=== PATIENT | male | born 1965 | race Two or more races ===

== ENCOUNTER 2019-02-03 13:53 | Emergency (ER) | payer OTHER ==
[~2019-02-03] VITALS: Ht 162.6 cm; Wt 61.2 kg
[2019-02-03 13:57] VITALS: Ht 162.6 cm; Wt 61.2 kg
[2019-02-03 14:50] VITALS: BP 96/66
== END 2019-02-03 14:50 | disposition home or self-care (01) ==
LOC: ED 13:53
DX: S90.112A Contusion of left great toe without damage to nail, initial encounter (principal); X58.XXXA Exposure to other specified factors, initial encounter; Y93.89 Activity, other specified; Y92.89 Other specified places as the place of occurrence of the external cause; Y99.8 Other external cause status

== ENCOUNTER 2020-09-05 17:25 | Emergency (ER) | payer OTHER ==
[~2020-09-05] VITALS: Ht 160 cm; Wt 67.1 kg
[2020-09-05 17:33] VITALS: Ht 160 cm; Wt 67.1 kg
[2020-09-05 18:42] LABS: BASOPHIL % 0.6 % (0.2-1.5); PLATELET COUNT 304 x10^3mcL (152-348)
[2020-09-05 18:46] LABS: RED CELL DISTRIBUTION WIDTH 14.6 % (12.1-16.2)
[2020-09-05 19:05] LABS: CALCIUM 8.9 mg/dL (8.5-10.1); CARBON DIOXIDE 30.4 mmol/L (21-32); CHLORIDE SERUM 105 mmol/L (98-107); CREATININE SERUM 0.8 mg/dL (0.7-1.3); GFR1 > 60 mL/min; GLUCOSE SERUM 87 mg/dL (74-106); POTASSIUM SERUM 4.1 mmol/L (3.5-5.1); SODIUM SERUM 139 mmol/L (136-145)
[2020-09-05 19:09] LABS: ALBUMIN 3.5 g/dL (3.4-5.0); ALKALINE PHOSPHATASE 74 U/L (46-116); ALT/SGPT 120 U/L (16-63); AST/SGOT 75 U/L (15-37); BILIRUBIN TOTAL 0.7 mg/dL (0.20-1.00); C REACTIVE PROTEIN 1.8 mg/dL (<=0.9); TOTAL PROTEIN, SERUM 7.9 g/dL (6.4-8.2)
[2020-09-05] MEDS ORDERED: KEF500 PO (21:11)
[2020-09-05] MEDS ORDERED: NAPROSYN500 MG PO (21:11)
[2020-09-05] MEDS ORDERED: ANTIBIOTIC O500 U/GM TOP (21:11)
[2020-09-05 21:31] VITALS: BP 128/74
== END 2020-09-05 21:31 | disposition home or self-care (01) ==
LOC: ED 17:25
PROVIDERS: Emergency Medicine
DX: T14.8XXA Other injury of unspecified body region, initial encounter (principal); B35.1 Tinea unguium; X58.XXXA Exposure to other specified factors, initial encounter; Y93.89 Activity, other specified; Y92.89 Other specified places as the place of occurrence of the external cause; Y99.8 Other external cause status
CPT/HCPCS: 83880